=== PATIENT | female | born 1985 | race African-American/Black ===

== ENCOUNTER → 2016-11-20 | Outpatient (CLI) | payer OTHER ==
[~2016-11-20] MED LIST: AMOXICILLIN875 MG PO; DIABETA 2.5MG2.5 MG PO; DICLEGIS; DOXYCYCLINE 10100 MG PO; IBU600 MG PO; MACROBID 1100 MG/CAP PO; NEXPLANON68 MG ID; NORCO 325 MG-51 TAB PO; NORMODYNE200 MG PO; PEN-VEE K500 MG PO; PHENERGAN 25 TA25 MG PO; PRENATAL1 TA7; TAMIFLU 75MG75 MG PO; ZOFRAN 4MG T4 MG/TAB PO
== END ==
LOC: SUN.DIA 13:00
DX: O24.419 Gestational diabetes mellitus in pregnancy, unspecified control (principal); Z3A.34 34 weeks gestation of pregnancy; Z71.3 Dietary counseling and surveillance
CPT/HCPCS: G0108

== ENCOUNTER 2016-12-05 20:49 | Outpatient (CLI) | payer OTHER ==
[~2016-12-05] VITALS: Ht 139.7 cm; Wt 100.5 kg
[~2016-12-05 20:49] MED LIST changes: -DIABETA 2.5MG2.5 MG PO; -IBU600 MG PO; -NORMODYNE200 MG PO; -TAMIFLU 75MG75 MG PO
[2016-12-05 21:15] VITALS: BP 137/89; PULSE 76; TEMP 98.5
[2016-12-05 21:20] VITALS: BP 137/89; PULSE 76; TEMP 98.5
[2016-12-05 21:50] VITALS: BP 114/61; PULSE 84
== END 2016-12-05 22:00 | disposition home or self-care (01) ==
LOC: LDRO 20:49
DX: O47.03 False labor before 37 completed weeks of gestation, third trimester (principal); O24.419 Gestational diabetes mellitus in pregnancy, unspecified control; Z3A.31 31 weeks gestation of pregnancy

== ENCOUNTER 2016-12-16 12:22 | Emergency (ER) | payer OTHER, MEDICAID ==
[~2016-12-16] VITALS: Ht 134.6 cm; Wt 99.5 kg
[2016-12-16 12:30] VITALS: TEMP 98.8
[2016-12-16 13:31] LABS: INFLUENZA B NEGATIVE
[2016-12-16] MEDS ORDERED: TAMIFLU 75MG75 MG PO (16:08)
[2016-12-16 16:19] VITALS: BP 136/88; PULSE 88
== END 2016-12-16 16:20 | disposition home or self-care (01) ==
LOC: COL.ER 12:22
PROVIDERS: Physician Assistant
DX: O98.513 Other viral diseases complicating pregnancy, third trimester (principal); B34.9 Viral infection, unspecified; R50.9 Fever, unspecified; Z3A.33 33 weeks gestation of pregnancy; Z20.828 Contact with and (suspected) exposure to other viral communicable diseases
CPT/HCPCS: J7030

== ENCOUNTER 2017-01-08 17:54 | Outpatient (CLI) | payer OTHER, MEDICAID ==
[~2017-01-08] VITALS: Ht 134.6 cm; Wt 102.3 kg
[~2017-01-08 17:54] MED LIST changes: +TAMIFLU 75MG75 MG PO
[2017-01-08 18:30] VITALS: BP 154/74; PULSE 91; TEMP 98.4
[2017-01-08 18:47] VITALS: BP 154/74; PULSE 91; TEMP 98.4
[2017-01-08 18:48] LABS: MEAN CELL VOLUME 85 fl (80.0-100.0); MEAN CORPUSCULAR HGB CONC 32 g/dl (33.0-37.0); MEAN PLATELET VOLUME 11.1 fl (7.4-10.4); PLATELET COUNT 221 K/mm3 (130-400); RED BLOOD COUNT 3.74 M/mm3 (4.10-5.30); REDCELL DISTRIBUTION WIDTH-CV 15.9 % (11.5-14.5); WHITE BLOOD COUNT 7.1 K/mm3 (4.8-10.8)
[2017-01-08 18:50] LABS: HEMATOCRIT 31.7 % (37.0-47.0); MEAN CORPUSCULAR HEMOGLOBIN 27 pg (27.0-31.0)
[2017-01-08 18:51] LABS: ADD PATHOLOGY DIFF REVIEW NO
[2017-01-08 18:57] LABS: ADJUSTED CALCIUM 10.2 mg/dL (8.4-10.2); ALBUMIN 2.9 gm/dL (3.5-5.0); BILIRUBIN,TOTAL 0.5 mg/dL (0.0-1.0); CALCIUM 9.3 mg/dL (8.4-10.2); CREATININE, serum 0.86 mg/dL (0.52-1.25); POTASSIUM 3.8 mmol/L (3.4-5.0); TOTAL PROTEIN 6.4 gm/dL (6.4-8.2)
[2017-01-08 19:00] VITALS: BP 152/83; PULSE 92
[2017-01-08] MEDS ORDERED: DIABETA 2.5MG2.5 MG PO (19:08)
[2017-01-08 19:26] LABS: BAND 2 % (0-10); METAMYELOCYTE 1 % (0-0); NEUTROPHILS 69 % (42.0-75.2); TOTAL CELLS COUNTED 100
[2017-01-08 19:28] LABS: ANISOCYTOSIS 1+; HYPOCHROMIA 1+; POLYCHROMASIA 2+
[2017-01-08 19:29] LABS: MICROCYTOSIS 2+
[2017-01-08 19:30] VITALS: BP 153/72; PULSE 92
[2017-01-08 19:40] LABS: PH 5 (5-8); URINE APPEARANCE Cloudy; URINE BACTERIA Moderate /hpf; URINE BILIRUBIN Positive (NEGATIVE); URINE BLOOD Negative (NEGATIVE); URINE COLOR Amber; URINE GLUCOSE Negative (NEGATIVE); URINE KETONE Trace (NEGATIVE); URINE RBC None Seen /hpf; URINE WBC 20-50 /hpf
[2017-01-08 20:07] VITALS: BP 157/73; PULSE 90
== END 2017-01-08 20:45 | disposition home or self-care (01) ==
LOC: LDRO 17:54
PROVIDERS: Obstetrics & Gynecology
DX: O47.03 False labor before 37 completed weeks of gestation, third trimester (principal); O26.893 Other specified pregnancy related conditions, third trimester; R03.0 Elevated blood-pressure reading, without diagnosis of hypertension; Z3A.36 36 weeks gestation of pregnancy

== ENCOUNTER 2017-01-12 06:59 | Inpatient (IN) | payer OTHER, MEDICAID ==
[~2017-01-12] VITALS: Ht 134.6 cm; Wt 103.2 kg
[2017-01-12] VITALS (57 sets, daily range): BP systolic 119–190; BP diastolic 64–122; PULSE 62–110; TEMP 98.1–99
[~2017-01-12 06:59] MED LIST changes: +DIABETA 2.5MG2.5 MG PO
[2017-01-12 08:38] LABS: MEAN CELL VOLUME 85 fl (80.0-100.0); MEAN CORPUSCULAR HGB CONC 32 g/dl (33.0-37.0); MEAN PLATELET VOLUME 11.5 fl (7.4-10.4); PLATELET COUNT 236 K/mm3 (130-400); RED BLOOD COUNT 3.75 M/mm3 (4.10-5.30); REDCELL DISTRIBUTION WIDTH-CV 17.1 % (11.5-14.5); WHITE BLOOD COUNT 9.4 K/mm3 (4.8-10.8)
[2017-01-12 08:39] LABS: ADD PATHOLOGY DIFF REVIEW NO; HEMATOCRIT 31.8 % (37.0-47.0); HEMOGLOBIN 10.1 g/dl (12.5-16.0); MEAN CORPUSCULAR HEMOGLOBIN 27 pg (27.0-31.0)
[2017-01-12 08:41] LABS: ADJUSTED CALCIUM 9.6 mg/dL (8.4-10.2); ALBUMIN 3.2 gm/dL (3.5-5.0); BILIRUBIN,TOTAL 0.5 mg/dL (0.0-1.0); CREATININE, serum 0.78 mg/dL (0.52-1.25); TOTAL PROTEIN 6.6 gm/dL (6.4-8.2)
[2017-01-12 08:55] LABS: BAND 2 % (0-10); METAMYELOCYTE 2 % (0-0); NEUTROPHILS 51 % (42.0-75.2); TOTAL CELLS COUNTED 100
[2017-01-12] MEDS ORDERED: NORMODYNE200 MG PO (08:56)
[2017-01-12 08:58] LABS: ANISOCYTOSIS 2+; HYPOCHROMIA 1+; POIKILOCYTOSIS 1+; POLYCHROMASIA 2+
[2017-01-13] VITALS (26 sets, daily range): BP systolic 109–170; BP diastolic 59–101; PULSE 60–92; TEMP 97.7–98.8
[2017-01-13 08:37] LABS: MEAN CELL VOLUME 85 fl (80.0-100.0); MEAN CORPUSCULAR HGB CONC 31 g/dl (33.0-37.0); MEAN PLATELET VOLUME 10.8 fl (7.4-10.4); PLATELET COUNT 207 K/mm3 (130-400); RED BLOOD COUNT 3.44 M/mm3 (4.10-5.30); REDCELL DISTRIBUTION WIDTH-CV 17.2 % (11.5-14.5); WHITE BLOOD COUNT 11.1 K/mm3 (4.8-10.8)
[2017-01-13 08:46] LABS: ADJUSTED CALCIUM 8.4 mg/dL (8.4-10.2); ALBUMIN 2.6 gm/dL (3.5-5.0); BILIRUBIN,TOTAL 0.5 mg/dL (0.0-1.0); CALCIUM 7.3 mg/dL (8.4-10.2); CREATININE, serum 0.82 mg/dL (0.52-1.25); TOTAL PROTEIN 5.6 gm/dL (6.4-8.2)
[2017-01-13 08:50] LABS: MAGNESIUM 6.3 mg/dL (1.6-2.3)
[2017-01-13 08:55] LABS: ADD PATHOLOGY DIFF REVIEW NO; HEMATOCRIT 29.2 % (37.0-47.0); HEMOGLOBIN 9.1 g/dl (12.5-16.0); MEAN CORPUSCULAR HEMOGLOBIN 26 pg (27.0-31.0)
[2017-01-13 09:15] LABS: BAND 7 % (0-10); METAMYELOCYTE 1 % (0-0); NEUTROPHILS 63 % (42.0-75.2); PLATELET ESTIMATE NORMAL (NORMAL); TOTAL CELLS COUNTED 100
[2017-01-14 02:00] VITALS: BP 133/71; PULSE 69; TEMP 98.5
[2017-01-14 07:45] VITALS: BP 129/75; PULSE 84; TEMP 98.9
[2017-01-14] MEDS ORDERED: IBU600 MG PO (09:03)
[2017-01-14] MEDS ORDERED: NORMODYNE200 MG PO (09:03)
[2017-01-14 10:16] LABS: ADJUSTED CALCIUM 9.5 mg/dL (8.4-10.2); ALBUMIN 3.1 gm/dL (3.5-5.0); BILIRUBIN,TOTAL 0.5 mg/dL (0.0-1.0); CALCIUM 8.8 mg/dL (8.4-10.2); CREATININE, serum 0.96 mg/dL (0.52-1.25); POTASSIUM 3.9 mmol/L (3.4-5.0); TOTAL PROTEIN 6.5 gm/dL (6.4-8.2)
== END 2017-01-14 14:15 | disposition home or self-care (01) | DRG 774 ==
LOC: LDR 06:59 → OB 06:59
PROVIDERS: Obstetrics & Gynecology
PROC: 10E0XZZ Delivery of Products of Conception, External Approach (ICD-10-PCS; principal; 2017-01-12)
PROC: 3E033VJ Introduction of Other Hormone into Peripheral Vein, Percutaneous Approach (ICD-10-PCS; 2017-01-12)
DX: O14.13 Severe pre-eclampsia, third trimester (principal); E87.1 Hypo-osmolality and hyponatremia; O75.89 Other specified complications of labor and delivery; O24.420 Gestational diabetes mellitus in childbirth, diet controlled; O43.123 Velamentous insertion of umbilical cord, third trimester; O09.43 Supervision of pregnancy with grand multiparity, third trimester; Z3A.37 37 weeks gestation of pregnancy; Z37.0 Single live birth
CPT/HCPCS: J2590; J2795; J3475; J7120

== ENCOUNTER 2018-04-04 10:04 | Emergency (ER) | payer SELFPAY ==
[~2018-04-04] VITALS: Ht 134.6 cm; Wt 102.3 kg
[~2018-04-04 10:04] MED LIST changes: +FLEXERIL 1010 MG/TAB PO; +IBU600 MG PO; +NORMODYNE200 MG PO; +ZESTORETIC 12.51 TAB PO
[2018-04-04 10:07] VITALS: TEMP 98.8
[2018-04-04 10:36] LABS: COLLECTION METHOD CLEAN CATCH
[2018-04-04 10:41] LABS: MUCOUS Present /lpf; PH 5 (5-8); URINE APPEARANCE Hazy; URINE BACTERIA None Seen /hpf; URINE BILIRUBIN Negative (NEGATIVE); URINE BLOOD 1+ (NEGATIVE); URINE COLOR Yellow; URINE GLUCOSE Negative (NEGATIVE); URINE KETONE Negative (NEGATIVE); URINE LEUKOCYTE ESTERASE Negative (NEGATIVE); URINE NITRATE Negative (NEGATIVE); URINE PROTEIN(semi-quant) 1+ (NEGATIVE)
[2018-04-04 11:13] LABS: ALBUMIN 4.1 gm/dL (3.5-5.0); BILIRUBIN,TOTAL 0.4 mg/dL (0.0-1.0); CALCIUM 9.2 mg/dL (8.4-10.2); CREATININE, serum 0.86 mg/dL (0.52-1.25); POTASSIUM 3.5 mmol/L (3.4-5.0); TOTAL PROTEIN 8.5 gm/dL (6.4-8.2)
[2018-04-04 11:14] LABS: BASO % 0.7 % (0.0-2.0); EOS # 0.1 (0.0-0.7); EOS % 1.8 % (0-4.0); GRAN # 2.3 (1.4-6.5); GRAN % 41.6 % (42.2-75.2); HEMOGLOBIN 11.6 g/dl (12.5-16.0); LYMPH # 2.7 (1.2-3.4); LYMPH % 48.8 % (20.0-51.0); MEAN CELL VOLUME 86 fl (80.0-100.0); MEAN CORPUSCULAR HEMOGLOBIN 27 pg (27.0-31.0); MEAN CORPUSCULAR HGB CONC 31 g/dl (33.0-37.0); MEAN PLATELET VOLUME 9.7 fl (7.4-10.4); MONO # 0.4 (0.1-0.6); MONO % 6.9 % (1.7-9.3); PLATELET COUNT 348 K/mm3 (130-400); RED BLOOD COUNT 4.28 M/mm3 (4.10-5.30)
[2018-04-04 11:48] VITALS: BP 177/99; PULSE 84
== END 2018-04-04 11:48 | disposition home or self-care (01) ==
LOC: COL.ER 10:04
PROVIDERS: Physician Assistant Medical
DX: R51 Headache (principal); I10 Essential (primary) hypertension; Z98.51 Tubal ligation status

== ENCOUNTER 2023-08-01 12:55 | Emergency (ER) | payer MEDICAID ==
[~2023-08-01] VITALS: Ht 149.9 cm; Wt 92.3 kg
[~2023-08-01 12:55] MED LIST changes: +NORVASC 10MG10 MG PO
[2023-08-01 13:04] VITALS: BP 163/96; TEMP 98.2
[2023-08-01 15:06] VITALS: PULSE 101
== END 2023-08-01 15:06 | disposition home or self-care (01) ==
LOC: COL.ER 12:55
DX: T26.11XA Burn of cornea and conjunctival sac, right eye, initial encounter (principal); T26.12XA Burn of cornea and conjunctival sac, left eye, initial encounter; H10.9 Unspecified conjunctivitis; X58.XXXA Exposure to other specified factors, initial encounter